=== PATIENT | female | born 1975 | race American Indian/Alaskan Native ===

== ENCOUNTER 2020-12-09 18:03 | Emergency (ER) | payer SELFPAY ==
[2020-12-09] MEDS ORDERED: HYDROcodone/ACETAMINOPHEN 5-325 MG TAB PO ONE (18:30)
[2020-12-09] MEDS ORDERED: IBUPROFEN 800 MG TAB PO STA (18:30)
[2020-12-09 18:32] VITALS: BP 134/75
--- NOTE | 2020-12-09 18:32 | Emergency Department Report ---
ED General Adult HPI - General Stated complaint: FOOT SWOLLEN SPRAINED OR BROKE Time Seen by Provider: 12/09/20 18:29 - History of Present Illness Initial comments: 45-year-old female patient presents with complaints of left ankle pain and swelling after a twist injury yesterday. She rates her pain as a 10/10 in severity. Patient denies any loss of sensation, but admits to difficulty moving the ankle due to pain. She states she is unable to ambulate due to the pain. -: Sudden Severity scale (0 -10): 10 - Related Data Previous Rx's Medication Instructions Recorded Last Taken Type Acetaminophen/Codeine [Tylenol 1 tab PO Q8H PRN #6 tab 12/09/20 Unknown Rx /Codeine # 3 tab] Naproxen 500 mg PO BID PRN #20 tablet 12/09/20 Unknown Rx Allergies Allergy/AdvReac Type Severity Reaction Status Date / Time No Known Allergies Allergy Unverified 12/09/20 18:24 ED Review of Systems ROS: Stated complaint: FOOT SWOLLEN SPRAINED OR BROKE Other details as noted in HPI Constitutional: denies: fever Musculoskeletal: joint swelling, arthralgia Skin: denies: change in color ED Past Medical Hx - Medications Home Medications: Home Medications Medication Instructions Recorded Confirmed Last Taken Type Acetaminophen/Codeine [Tylenol 1 tab PO Q8H PRN #6 tab 12/09/20 Unknown Rx /Codeine # 3 tab] Naproxen 500 mg PO BID PRN #20 tablet 12/09/20 Unknown Rx ED Physical Exam - General General appearance: alert, in no apparent distress, obese - Head Head exam: Present: atraumatic, normocephalic - Eye Eye exam: Present: normal appearance. Absent: scleral icterus - Respiratory Respiratory exam: Absent: respiratory distress - Cardiovascular Cardiovascular Exam: Present: regular rate - Expanded Lower Extremity Exam Left Ankle exam: Present: tenderness (Lateral), swelling (Lateral portion of ankle and foot), ecchymosis (Minimal). Absent: full ROM (Limited secondary to pain) Neuro vascular tendon exam: Absent: pulse deficit Gait: Positive: antalgic - Neurological Exam Neurological exam: Present: alert, oriented X3 - Psychiatric Psychiatric exam: Present: normal affect, normal mood - Skin Skin exam: Present: warm, dry, intact, normal color. Absent: rash ED Course Vital Signs 12/09/20 12/09/20 18:27 19:07 Temperature 98.3 F Pulse Rate 83 Respiratory 20 17 Rate Blood Pressure 134/75 O2 Sat by Pulse 99 Oximetry ED Medical Decision Making - Radiology Data Radiology results: report reviewed LEFT ANKLE 3 VIEW(S) INDICATION / CLINICAL INFORMATION: lateral pain, swelling after twist injury COMPARISON: None available. FINDINGS: BONES / JOINT(S): No acute fracture or subluxation. No significant arthritis. SOFT TISSUES: Mild lateral ankle soft tissue swelling. ADDITIONAL FINDINGS: None. - Medical Decision Making 45-year-old female patient presents with complaints of left ankle pain and swelling after a twist injury yesterday. She rates her pain as a 10/10 in severity. Patient denies any loss of sensation, but admits to difficulty moving the ankle due to pain. She states she is unable to ambulate due to the pain. X-rays negative for fracture. Will treat for ankle sprain with rice method, crutches, and meds. Patient to follow-up with orthopedics as needed. Strict return precautions discussed in detail patient verbalizes understanding. Critical care attestation.: If time is entered above; I have spent that time in minutes in the direct care of this critically ill patient, excluding procedure time. ED Disposition Clinical Impression: Left ankle sprain Disposition: HOME / SELF CARE / HOMELESS Is pt being admited?: No Condition: Stable Instructions: Ankle Sprain Prescriptions: Naproxen 500 mg PO BID PRN #20 tablet PRN Reason: pain Acetaminophen/Codeine [Tylenol /Codeine # 3 tab] 1 tab PO Q8H PRN #6 tab PRN Reason: Pain , Severe (7-10) Referrals: [facility] [Provider Group] - as needed Forms: Work/School Release Form(ED)
--- NOTE | 2020-12-09 19:00 | XRay Report ---
LEFT ANKLE 3 VIEW(S) INDICATION / CLINICAL INFORMATION: lateral pain, swelling after twist injury COMPARISON: None available. FINDINGS: BONES / JOINT(S): No acute fracture or subluxation. No significant arthritis. SOFT TISSUES: Mild lateral ankle soft tissue swelling. ADDITIONAL FINDINGS: None. Signer Name: Demetria De La Cruz MD Signed: 12/09/2020 6:56 PM Workstation Name: [id number]
== END 2020-12-09 21:06 | disposition home or self-care (01) ==
LOC: ED 18:03
DX: S93.492A Sprain of other ligament of left ankle, initial encounter (principal); Z79.899 Other long term (current) drug therapy; X58.XXXA Exposure to other specified factors, initial encounter; Y93.89 Activity, other specified; Y92.89 Other specified places as the place of occurrence of the external cause; Y99.8 Other external cause status
CPT/HCPCS: 99283

== ENCOUNTER 2021-11-14 19:21 | Emergency (ER) | payer SELFPAY ==
[2021-11-14 21:02] VITALS: BP 156/69
== END 2021-11-15 13:29 | disposition left against medical advice (07) ==
LOC: ED 19:21
DX: O20.8 Other hemorrhage in early pregnancy (principal); Z53.21 Procedure and treatment not carried out due to patient leaving prior to being seen by health care provider; Z3A.00 Weeks of gestation of pregnancy not specified